=== PATIENT | female | born 1950 | race Caucasian/White ===

== ENCOUNTER 2019-07-08 16:53 | Emergency (ER) | payer BC, MEDICARE, OTHER ==
--- OUTSIDE RECORDS SUMMARY | 2019-07-08 17:03 | XMS REPORT | Continuity of Care Document ---
:1950 External Reference #:[id number] Author Name Tory Saldaña MD Address [address] [place] [address] Care Team Providers Name Role Phone [facility] - Physical Therapist Care Team Information Counter Intelligence [phone] Problems Active Problems Provider Date Benign essential hypertension Tory Saldaña MD Onset: 01/21/2012 Essential hypertension Tory Saldaña MD Onset: 05/22/2015 Degeneration of lumbar intervertebral disc Bulmaro Hector PA Onset: 02/09/2018 Note: w/ Grade1 Anterolithesis L4-5 -- Spinal stenosis of lumbar region Bulmaro Hector PA Onset: 03/04/2018 Note: L2-3 disc bulge with severe central stenosis and mod igor foramen Social History Type Date Description Comments Sex Unknown Tobacco Use Start: Unknown Never Smoked Cigarettes ETOH Use Occasionally consumes alcohol Tobacco Use Start: Unknown Patient has never smoked Smoking Status Reviewed: 05/11/19 Patient has never smoked Seat Belt/Car Seat always uses seat belt Allergies, Adverse Reactions, Alerts Description No Known Drug Allergies Medications Active Medications SIG Qnty Indications Ordering Date Provider Hydrochlorothiazide Take 1 Tablet 90tabs I10 Piper, 10/26/2018 25mg By Mouth Every Tory Larson MD Tablets Morning With Potassium Rich Foods Duloxetine HCL Take 1 Capsule 180caps M79.7 Bulmaro Hector, 08/10/[address] By Mouth Two PA Part Times Daily Vitamin D 1 by mouth 90tabs M79.7 Scarlett, 11/28/2017 2000Unit Tablets every day Kelsey Harvey RN [place] Polyethylene Glycol 3350 mix the 527units K59.03 Piper, 05/27/2016 3350NF contents of one Tory Larson MD Powder capful of powder in liquid and drink once daily. Naproxen 1 by mouth 180tabs M50.13 Scarlett, 03/05/2016 375mg Tablets twice a day as Kelsey Harvey RN needed [place] M62.830 Trazodone HCL take 1-4 tablets by 120tabs G47.00 Tory Saldaña 2014 50mg mouth every night MD Neo Tablets at bedtime as needed for insomnia Gabapentin Take 1 Tablet By 270tabs M79.7 Bulmaro Hector PA 02/11/2011 600mg Mouth 3 Times Tablets Daily M54.17 Tramadol HCL Take 1 Tablet By 90tabs M50.13 Tory Saldaña 08/17/2010 50mg Mouth 3 Times MD Neo Tablets Daily as Needed ; Max Daily Dose Is Three Tablets M79.7 History Medications Prednisone Take 3 Tablets By 18tabs Ladarius Rodrigez, 04/08/2019 - 20mg Tablets Mouth For 3 Days DO 04/09/2019 Then 2 Tablets For 3 Days Then 1 Tablet For 3 Days Prednisone take 3 tablets by 18tabs Ladarius Rodrigez, 11/19/2018 - 20mg Tablets mouth for 3 days, DO 12/18/2018 then 2 tablets by mouth for 3 days, then 1 tablet by mouth for 3 days Medications Administered in Office Medication SIG Qnty Indications Ordering Provider Date PPD Tory Saldaña MD 05/11/2019 Injection Inj Triamcinolone (Kenalog) Im Lurvey, Ladarius, DO 04/09/2019 10 MG, Injection Hyalgan Or Supartz Per Dose LynnrveyZachariahLadarius, DO 04/02/2019 Injection Hyalgan Or Supartz Per Dose Lynnrvey Ladarius, DO 03/26/2019 Injection Inj Triamcinolone (Kenalog) Im Lurvey, Ladarius, DO 03/26/2019 10 MG, Injection Hyalgan Or Supartz Per Dose Lynnrvey, Ladarius, DO 03/19/2019 Injection Inj Triamcinolone (Kenalog) Im Lurvey, Ladarius, DO 02/19/2019 10 MG, Injection Arthrocentesis Aspiration Inj, KongeyZachariahLadarius, DO 02/19/2019 Small Joint/Bursa W US Guidance Injection Inj Triamcinolone (Kenalog) Im Lurvey, Ladarius, DO 12/18/2018 10 MG, Injection PPD Bulmaro Hector PA 05/25/2018 Injection Depo Medrol 80 MG Bulmaro Hector PA 02/05/2018 Injection Depo Medrol 80 MG Bulmaro Hector PA 07/17/2017 Injection PPD Tory Saldaña MD 05/19/2017 Injection PPD Tory Saldaña MD 05/27/2016 Injection PPD Tory Saldaña MD 05/22/2015 Injection PPD Tory Saldaña MD 03/29/2013 Injection PPD Tory Saldaña MD 11/25/2011 Injection PPD Tory aSldaña MD 01/28/2011 Injection PPD Nurses Schedule Carola 05/14/2010 Injection Immunizations CPT Code Status Date Vaccine Lot # [id number] Given 05/11/2019 Influenza Vac, Quadrivalent, Split, 0.5mL Dosage, [id number] Im Use 20294 Given 04/11/2018 Fluzone Highdose Age 65 And Over Preservative & Antibiotic Free 66121 Given 12/24/2017 Shingrix (Shingles) Zoster Vaccine HZV, Recombinant, Subunit, Adj 46725 Given 11/25/2017 Prevnar 13 Pneumococal Conjugate Vaccine 20964 Given 05/19/2017 Influenza Vac, Quadrivalent, Split, 0.5mL Dosage, [id number] Im Use 62421 Given 05/27/2016 Influenza Vac, Quadrivalent, Split, 0.5mL Dosage, [id number] Im Use 24825 Given 09/13/2015 Hepatitis B Vac Ped/Adolescent 3 Dose Schedule [id number] 49245 Given 05/22/2015 Influenza Vac, Quadrivalent, Split, 0.5mL Dosage, [id number] Im Use Q2038 Given 05/02/2014 Fluzone Trivalent Immunization [id number] Q2038 Given 04/28/2013 Fluzone Trivalent Immunization [id number] 07332 Given 12/21/2012 Zoster (Zostavax) [id number] Q2038 Given 04/07/2012 Fluzone Trivalent Immunization 39490 Given 11/25/2011 Tdap (Adacel) Ages 7 And Above Only [id number] 42124 Given 05/14/2010 Afluria Or Fluvirin Flu Vac Intramuscular [id number] 17517 Given 07/21/2007 Afluria Or Fluvirin Flu Vac Intramuscular [id number] 31882 Given 09/02/2006 Afluria Or Fluvirin Flu Vac Intramuscular 89471 Given 09/02/2006 Afluria Or Fluvirin Flu Vac Intramuscular [id number] 16240 Given 05/31/2005 Afluria Or Fluvirin Flu Vac Intramuscular [id number] 43355 Given 07/31/2004 Afluria Or Fluvirin Flu Vac Intramuscular 54131 Given 05/12/2003 Afluria Or Fluvirin Flu Vac Intramuscular 06976 Given 05/31/2002 Afluria Or Fluvirin Flu Vac Intramuscular 64508 Refused 10/11/2009 Tdap (Adacel) Ages 7 And Above Only Vital Signs Date Vital Result Comment 05/11/2019 4:18pm Weight 93.00 lb Heart Rate 88 /min BP Systolic 144 mmHg BP Diastolic 88 mmHg BP Systolic Recheck 136 mmHg BP Diastolic Recheck 84 mmHg Height 60 inches 5'0" BMI (Body Mass Index) 18.2 kg/m2 04/09/2019 9:55am Weight 98.00 lb Heart Rate 82 /min Height 60 inches 5'0" BMI (Body Mass Index) 19.1 kg/m2 Pain Level 5 LEFT knee Results Description No Information Available Procedures Date Code Description Status 04/09/2019 Arthrocentesis/Aspiration/Inj Major Joint Or Bursa Completed With Ultrasnd 04/02/2019 Arthrocentesis/Aspiration/Inj Major Joint Or Bursa Completed With Ultrasnd 03/26/2019 32940 Ultrasound Guide For Needle Biopsy Completed 03/26/2019 Arthrocentesis/Aspiration/Inj Major Joint Or Bursa Completed With Ultrasnd 03/26/2019 02176 Inject Tendon/Ligament/Cyst Completed 03/19/2019 Arthrocentesis/Aspiration/Inj Major Joint Or Bursa Completed With Ultrasnd 02/19/201942203 Arthrocentesis Aspiration Inj, Small Joint/Bursa W US Completed Guidance 12/24/2018 88704124 Mammogram Completed 12/18/2018 96478 Ultrasound Guide For Needle Biopsy Completed 12/18/2018 Arthrocentesis/Aspiration/Inj Major Joint Or Bursa Completed With Ultrasnd 12/18/2018 90991 Inject Tendon/Ligament/Cyst Completed 12/18/2018 20318 Inject Tendon/Ligament/Cyst Completed 12/01/2018 16888 Visual Screening Test Completed 02/06/2018 113642565 Bone Mineral Density Test Completed 11/24/2017 16044558 Mammogram Completed 03/20/2017 42837634 Colonoscopy Completed 09/27/2016 29149409 Mammogram Completed 06/28/2015 [id number] Mammogram Completed 06/28/2015 545676237 Bone Mineral Density Test Completed 02/02/2014 09499221 Mammogram Completed 02/23/2013 258364866 Bone Mineral Density Test Completed 01/26/2013 60769796 Mammogram Completed 02/17/2012 48879831 Colonoscopy Completed 11/20/2010 56625154 Mammogram Completed 10/11/2009 723257230 Bone Mineral Density Test Completed 09/27/2009 55293677 Mammogram Completed Medical Devices Description No Information Available Encounters Type Date Location Provider Dx Diagnosis Office Visit 04/09/2019 Ladarius Suarez, M25.562 Pain in LEFT knee 10:00a DO Joselin DO M17.11 Unilateral primary osteoarthritis, RIGHT knee M65.322 Trigger finger, LEFT index finger M65.332 Trigger finger, LEFT middle finger M19.042 Primary osteoarthritis, LEFT hand M19.041 Primary osteoarthritis, RIGHT hand M65.331 Trigger finger, RIGHT middle finger M65.341 Trigger finger, RIGHT ring finger M18.11 Unil primary osteoarth of first carpometacarp joint, r hand Office Visit 03/26/2019 Tory Rodrigez, M17.11 Unilateral primary 10:00a DO Ladarius Olivera, DO osteoarthritis, RIGHT knee M25.562 Pain in LEFT knee M65.322 Trigger finger, LEFT index finger M65.332 Trigger finger, LEFT middle finger M19.042 Primary osteoarthritis, LEFT hand M19.041 Primary osteoarthritis, RIGHT hand M65.331 Trigger finger, RIGHT middle finger M65.341 Trigger finger, RIGHT ring finger M18.11 Unil primary osteoarth of first carpometacarp joint, r hand Office Visit 03/19/2019 Tory Rodrigez, M17.11 Unilateral primary 11:00a DO Ladarius Olivera, DO osteoarthritis, RIGHT knee M25.562 Pain in LEFT knee M65.322 Trigger finger, LEFT index finger M65.332 Trigger finger, LEFT middle finger M19.041 Primary osteoarthritis, RIGHT hand M65.331 Trigger finger, RIGHT middle finger M65.341 Trigger finger, RIGHT ring finger M18.11 Unil primary osteoarth of first carpometacarp joint, r hand Office Visit 02/19/2019 Tory Baileysunnisusanne, M19.041 Primary 10:30a Wasileski, DO Ladarius, DO osteoarthritis, RIGHT hand M65.331 Trigger finger, RIGHT middle finger M65.341 Trigger finger, RIGHT ring finger M18.11 Unil primary osteoarth of first carpometacarp joint, r hand M65.322 Trigger finger, LEFT index finger M65.342 Trigger finger, LEFT ring finger M17.11 Unilateral primary osteoarthritis, RIGHT knee M25.562 Pain in LEFT knee Office Visit 12/18/2018 3:30p Tory Rodrigez, M65.331 Trigger Wasileski, DO Ladarius, DO finger, RIGHT middle finger M65.341 Trigger finger, RIGHT ring finger M18.11 Unil primary osteoarth of first carpometacarp joint, r hand M17.11 Unilateral primary osteoarthritis, RIGHT knee M25.562 Pain in LEFT knee Office Visit 11/19/2018 9:30a Tory Rodrigez M65.331 Trigger Wasileski, DO Ladarius, DO finger, RIGHT middle finger M65.341 Trigger finger, RIGHT ring finger M19.041 Primary osteoarthritis, RIGHT hand M18.11 Unil primary osteoarth of first carpometacarp joint, r hand M17.11 Unilateral primary osteoarthritis, RIGHT knee M25.562 Pain in LEFT knee Assessments Date Code Description Provider 05/11/2019 I10 Essential (primary) hypertension Tory Saldaña MD 05/11/2019 I73.00 Raynaud's syndrome without gangrene Tory Saldaña MD 05/11/2019 M79.7 Fibromyalgia Tory Saldaña MD 05/11/2019 E55.9 Vitamin D deficiency, unspecified Tory Saldaña MD 05/11/2019 Z79.891 detention (current) use of opiate analgesic Tory Saldaña MD 05/11/2019 G47.00 Insomnia, unspecified Tory Saldaña MD 05/11/2019 K59.03 Drug induced constipation Tory Saldaña MD 05/11/2019 Z68.1 Body mass index (BMI) 19.9 or less, adult Macarenzo, Tory Larson MD 04/09/2019 M25.562 Pain in LEFT knee Lurvey, Ladarius, DO 04/09/2019 M17.11 Unilateral primary osteoarthritis, RIGHT Lurvey, Ladarius, DO knee 04/09/2019 M65.322 Trigger finger, LEFT index finger Lurvey, Ladarius, DO 04/09/2019 M65.332 Trigger finger, LEFT middle finger Lurvey, Ladarius, DO 04/09/2019 M19.042 Primary osteoarthritis, LEFT hand Lurvey, Ladarius, DO 04/09/2019 M19.041 Primary osteoarthritis, RIGHT hand Lurvey, Ladarius, DO 04/09/2019 M65.331 Trigger finger, RIGHT middle finger Lurvey, Ladarius, DO 04/09/2019 M65.341 Trigger finger, RIGHT ring finger Lurvey, Ladarius, DO 04/09/2019 M18.11 Unilateral primary osteoarthritis of first Lurvey, Ladarius , DO carpometacarpal j 04/02/2019 M17.11 Unilateral primary osteoarthritis, RIGHT Lurvey, Ladarius, DO knee 04/02/2019 M25.562 Pain in LEFT knee Lurvey, Ladarius, DO 04/02/2019 M65.322 Trigger finger, LEFT index finger Lurvey, Ladarius, DO 04/02/2019 M65.332 Trigger finger, LEFT middle finger Lurvey, Ladarius, DO 04/02/2019 M19.042 Primary osteoarthritis, LEFT hand Lurvey, Ladarius, DO 04/02/2019 M19.041 Primary osteoarthritis, RIGHT hand Lurvey, Ladarius, DO 04/02/2019 M65.331 Trigger finger, RIGHT middle finger Lurvey, Ladarius, DO 04/02/2019 M65.341 Trigger finger, RIGHT ring finger Lurvey, Ladarius, DO 04/02/2019 M18.11 Unilateral primary osteoarthritis of first Lurvey, Ladarius , DO carpometacarpal j 03/26/2019 M17.11 Unilateral primary osteoarthritis, RIGHT Lurvey, Ladarius, DO knee 03/26/2019 M25.562 Pain in LEFT knee Lurvey, Ladarius, DO 03/26/2019 M65.322 Trigger finger, LEFT index finger Lurvey, Ladarius, DO 03/26/2019 M65.332 Trigger finger, LEFT middle finger Lurvey, Ladarius, DO 03/26/2019 M19.042 Primary osteoarthritis, LEFT hand Lurvey, Ladarius, DO 03/26/2019 M19.041 Primary osteoarthritis, RIGHT hand Lurvey, Ladarius, DO 03/26/2019 M65.331 Trigger finger, RIGHT middle finger Lurvey, Ladarius, DO 03/26/2019 M65.341 Trigger finger, RIGHT ring finger Lurvey, Ladarius, DO 03/26/2019 M18.11 Unilateral primary osteoarthritis of first Lurvey, Ladarius , DO carpometacarpal j 03/19/2019 M17.11 Unilateral primary osteoarthritis, RIGHT LurveyZachariahLadarius, DO knee 03/19/2019 M25.562 Pain in LEFT knee Lynnrvey Ladarius, DO 03/19/2019 M65.322 Trigger finger, LEFT index finger Lurvey, Ladarius, DO 03/19/2019 M65.332 Trigger finger, LEFT middle finger Lurvey, Ladarius, DO 03/19/2019 M19.041 Primary osteoarthritis, RIGHT hand LurveyZachariahLadarius, DO 03/19/2019 M65.331 Trigger finger, RIGHT middle finger Lurvey, Ladarius, DO 03/19/2019 M65.341 Trigger finger, RIGHT ring finger Lurvey, Ladarius, DO 03/19/2019 M18.11 Unilateral primary osteoarthritis of first Lurvey, Ladarius , DO carpometacarpal j 02/19/2019 M19.041 Primary osteoarthritis, RIGHT hand Lurvey, Ladarius, DO 02/19/2019 M65.331 Trigger finger, RIGHT middle finger Lurvey, Ladarius, DO 02/19/2019 M65.341 Trigger finger, RIGHT ring finger Lurvey, Ladarius, DO 02/19/2019 M18.11 Unilateral primary osteoarthritis of first Lurvey, Ladarius , DO carpometacarpal j 02/19/2019 M65.322 Trigger finger, LEFT index finger Lurvey, Ladarius, DO 02/19/2019 M65.342 Trigger finger, LEFT ring finger Lurvey, Ladarius, DO 02/19/2019 M17.11 Unilateral primary osteoarthritis, RIGHT Lurvey, Ladarius, DO knee 02/19/2019 M25.562 Pain in LEFT knee Lurvey, Ladarius, DO 12/18/2018 M65.331 Trigger finger, RIGHT middle finger Lurvey, Ladarius, DO 12/18/2018 M65.341 Trigger finger, RIGHT ring finger Lurvey, Ladarius, DO 12/18/2018 M18.11 Unilateral primary osteoarthritis of first Lurvey, Ladarius , DO carpometacarpal j 12/18/2018 M17.11 Unilateral primary osteoarthritis, RIGHT Lurvey, Ladarius, DO knee 12/18/2018 M25.562 Pain in LEFT knee Lurvey, Ladarius, DO 12/01/2018 Z01.00 Encounter for examination of eyes and Tory Saldaña MD vision without abnormal findings 12/01/2018 Z01.00 Encounter for exam of eyes and vision w/o Nurses Schedule [place] abnormal findings 11/19/2018 M65.331 Trigger finger, RIGHT middle finger Lurvey, Ladarius, DO 11/19/2018 M65.341 Trigger finger, RIGHT ring finger Lurvey, Ladarius, DO 11/19/2018 M19.041 Primary osteoarthritis, RIGHT hand Lurvey, Ladarius, DO 11/19/2018 M18.11 Unilateral primary osteoarthritis of first Lurvey, Ladarius , DO carpometacarpal j 11/19/2018 M17.11 Unilateral primary osteoarthritis, RIGHT Lurvey, Ladarius, DO knee 11/19/2018 M25.562 Pain in LEFT knee Lurvey, Ladarius, DO Plan of Treatment Future Appointment(s):11/15/2019 4:00 pm - Tory Saldaña MD at [id number] 8:10 am - Nurses Schedule [place] at [id number]/13/2019 3:45 pm - Lurvey, Ladarius, DO at Tory Olivera, 05/11/2019 - Tory Saldaña MDI10 Essential (primary) hypertensionFollow up:FBW w/in 1 mos 6 mos as AWV/EV I73.00 Raynaud's syndrome without vepphlafJ98.7 GfxhlkovcbmtZ80.9 Vitamin D deficiency, 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
--- NOTE | 2019-07-08 17:05 | UC ---
Skin Complaint HPI - HPI Summary HPI Summary: 68 yo female presents with LEFT 5th toe wound. She tells me that she has had a "corn" here for a long time, but over the last 2 months has noticed her shoes rubbing against this more often. Over the last week has had redness, swelling, and pain to the left 5th lateral toe - last night noticed some yellow drainage. She has been bandaging the area with a band-aid. Denies hx of diabetes. No fever or chills. No known hx of MRSA - History of Current Complaint Time Seen by Provider: 07/08/19 17:05 Stated Complaint: TOE PAIN Hx Obtained From: Patient Onset/Duration: Gradual Onset Onset Severity: Mild Current Severity: Moderate Pain Intensity: 5 Pain Scale Used: 0-10 Numeric - Allergy/Home Medications Allergies/Adverse Reactions: Allergies Allergy/AdvReac Type Severity Reaction Status Date / Time No Known Allergies Allergy Verified 07/08/19 17:20 Home Medications: Home Medications Duloxetine HCl 20 mg PO DAILY 07/08/19 [History Confirmed 07/08/19] Gabapentin 300 mg PO BID 07/08/19 [History Confirmed 07/08/19] Hydrochlorothiazide TAB* [Hydrodiuril TAB*] 25 mg PO DAILY 07/08/19 [History Confirmed 07/08/19] Naproxen Sodium [Naproxen 220 mg] 220 mg PO Q8HR 07/08/19 [History Confirmed 12/20] Tramadol HCl 50 mg PO DAILY 07/08/19 [History Confirmed 07/08/19] PMH/Surg Hx/FS Hx/Imm Hx Cardiovascular History: Hypertension Psychological History: Anxiety, Depression Review of Systems All Other Systems Reviewed And Are Negative: No Constitutional: Positive: Negative Skin: Positive: Other - Toe wound Respiratory: Positive: Negative Cardiovascular: Positive: Negative Neurological: Positive: Negative Psychological: Positive: Negative Physical Exam - Summary Physical Exam Summary: GENERAL: NAD. WDWN. No pain distress. SKIN: LEFT 5th toe: Lateral aspect with 1.0cm superficial ulceration and white/ pale appearing granulation tissue. Scant yellow drainage when palpated. Mild erythema extending to mid 5th MT and tip of 5th toe. Mild warmth. NECK: Supple. Nontender. No lymphadenopathy. CHEST: No accessory muscle use. Breathing comfortably and in no distress. CV: Pulses intact. Cap refill <2seconds MSK: FROM at left 5th toe. NEURO: Alert. PSYCH: Age appropriate behavior. Triage Information Reviewed: Yes Vital Signs: Vital Signs: Temp Pulse Resp BP Pulse Ox 97.8 F 88 16 185/97 96 07/08/19 17:11 07/08/19 17:11 07/08/19 17:11 07/08/19 17:11 07/08/19 17:11 Vital Signs Reviewed: Yes Course/Dx - Course Course Of Treatment: Wound of toe. Culture obtained today. Will place her on her bactroban ointment and keflex for 1 week. Recommend recheck in 1 week with PCP. BP noted elevated today. she has a hx of HTN and takes HCTZ for this. She denies headaches, dizziness, weakness, numbness, vision changes, n/v. - Diagnoses Provider Diagnosis: Infection of toe, High blood pressure Discharge ED - Sign-Out/Discharge Documenting (check all that apply): Patient Departure All imaging exams completed and their final reports reviewed: No Studies - Discharge Plan Condition: Stable Disposition: HOME Prescriptions: Cephalexin CAP* [Keflex CAP*] 500 mg PO TID #21 cap Mupirocin 2% OINT* [Bactroban 2 % Oint*] 1 applic TOPICAL BID #1 tube Patient Education Materials: Wound Infection (ED), Acute Wound Care (ED) Referrals: Tory Caballero MD [Primary Care Provider] - Additional Instructions: If you develop a fever, shortness of breath, chest pain, new or worsening symptoms - please call your PCP or go to the ED immediately. Your blood pressure was high at todays visit. Please see your primary provider within 4 weeks for recheck and re-evaluation. Change the dressing daily and apply a small amount of bactroban antibiotic ointment. Take the antibiotic as prescribed. I recommend that you schedule an appointment in 1 week with your primary doctor for a recheck of your toe wound. - Billing Disposition and Condition Condition: STABLE Disposition: Home
[2019-07-08] MEDS ORDERED: Mupirocin 2% OINT* TUBE TOPICAL ONE (17:12)
[2019-07-08 17:20] VITALS: BP 185/97
--- NOTE | 2019-07-10 07:11 | UC ---
- Progress Note Progress Note: + staph neg MRSA on cephalexin await culture no change Course/Dx - Diagnoses Provider Diagnoses: Infection of toe, High blood pressure Discharge ED - Sign-Out/Discharge Documenting (check all that apply): Post-Discharge Follow Up All imaging exams completed and their final reports reviewed: No Studies - Discharge Plan Condition: Stable Disposition: HOME Prescriptions: Cephalexin CAP* [Keflex CAP*] 500 mg PO TID #21 cap Mupirocin 2% OINT* [Bactroban 2 % Oint*] 1 applic TOPICAL BID #1 tube Patient Education Materials: Wound Infection (ED), Acute Wound Care (ED) Referrals: Tory Caballero MD [Primary Care Provider] - Additional Instructions: If you develop a fever, shortness of breath, chest pain, new or worsening symptoms - please call your PCP or go to the ED immediately. Your blood pressure was high at todays visit. Please see your primary provider within 4 weeks for recheck and re-evaluation. Change the dressing daily and apply a small amount of bactroban antibiotic ointment. Take the antibiotic as prescribed. I recommend that you schedule an appointment in 1 week with your primary doctor for a recheck of your toe wound. - Billing Disposition and Condition Condition: STABLE Disposition: Home
== END 2019-07-08 17:50 | disposition home or self-care (01) ==
LOC: UCEAST 16:53
DX: I10 Essential (primary) hypertension (principal); L08.9 Local infection of the skin and subcutaneous tissue, unspecified; F41.9 Anxiety disorder, unspecified; F32.9 Major depressive disorder, single episode, unspecified; Z79.899 Other long term (current) drug therapy
CPT/HCPCS: 87070; 87077; 87186; 87205; 87640; 87641; 99202; G0463